=== PATIENT | female | born 1970 | race Caucasian/White ===

== ENCOUNTER 2017-12-18 16:37 | Emergency (ER) | payer OTHER ==
[2017-12-18 19:04] LABS: PLATELET COUNT 330 10^3/uL (150-400)
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
[2017-12-18 19:57] VITALS: BP 135/97
== END 2017-12-18 20:22 | disposition home or self-care (01) ==
LOC: EDUNIT#
DX: R41.3 Other amnesia (principal); R48.8 Other symbolic dysfunctions; V43.52XA Car driver injured in collision with other type car in traffic accident, initial encounter; Y92.410 Unspecified street and highway as the place of occurrence of the external cause